=== PATIENT | female | born 1965 | race Caucasian/White ===

== ENCOUNTER 2025-03-30 07:22 | Outpatient (CLI) | payer OTHER ==
[2025-03-30 08:42] LABS: BASO % 0.7 % (0.1-1.2); EOS # 0.07 (0.04-0.54); EOS % 1.6 % (0.7-7.0); LYMPH # 1.48 (1.18-3.74); LYMPH % 32.8 % (19.3-53.1); MEAN PLATELET VOLUME 12.50 fl (9.4-12.4); MONO # 0.36 (0.24-0.82); MONO % 8.0 % (4.7-12.5); NEUT # 2.56 (1.56-6.13); NEUT % 56.7 % (34.0-71.1); RED CELL DISTRIBUTION WIDTH 13.2 % (11.6-14.4)
[2025-03-30 09:05] LABS: URINE APPEARANCE Clear; URINE BILIRRUBIN Negative (NEGATIVE); URINE BLOOD Negative; URINE COLOR Yellow; URINE GLUCOSE Negative (NEGATIVE); URINE LEUKOCYTE Negative; URINE NITRATE Negative; URINE PROTEIN Negative (NEGATIVE); URINE UROBILINOGEN 1.0 E.U./dl
[2025-03-30 09:08] LABS: URINE BACTERIA 22.7 uL (0.0-1933); URINE EPITHELIAL CELLS 7.3 uL (0.0-38.8); URINE RBC 11.1 uL (0.0-20.8); URINE WBC 4.4 uL (0.0-23.2)
[2025-03-30 09:24] LABS: URINE CAST 0.29 uL (0.0-1.40); URINE KETONE 40 (NEGATIVE)
[2025-03-30 09:33] LABS: ob NEGATIVE (NEGATIVE)
[2025-03-30 10:50] LABS: ALT/SGPT 27 U/L (12-78); AST/SGOT 20 U/L (15-37); BILIRUBIN TOTAL 0.55 mg/dL (0.3-1.2); BUN CREA RATIO 24 (7.0-25.0); CREATININE SERUM 0.59 mg/dL (0.55-1.02); FE 93.0 ug/dl (50-170); FREE TRIODOTIRONINE 2.57 pg/ml (2.18-3.98); GFR 104.32; GLOBULINA 3.8 G/DL (2.4-3.5); GLUCOSE FASTING 98 mg/dL (65-100); HDL 103 mg/dl (40-60); OSMOLALITY SERUM 284 MOSM/KG (275-295); T4 FREE 0.98 NG/ML (0.76-1.46); T4 TOTAL 9.69 UG/DL (4.8-13.9); TSH 1.290 uIU/mL (0.358-3.74); VLDL 12 (0-39)
[2025-03-30 11:03] LABS: CHOL HDL RATIO 2.5 (0-5.0); LDL 138 mg/dl (0-130)
[2025-03-30 12:36] LABS: FOLIC ACID > 20.00 ng/ml (4.78-20); T3 TOTAL 1.230 ng/ml (0.846-2.02); VITAMIN D3 25 HYDROXY 50.14 ng/ml (30-120)
[2025-03-31 09:08] LABS: ESTRADIOL SERUM < 5.0 pg/mL (.); HOMOCYSTEINE 7.8 umol/L (0.0-14.5); INSULIN LEVELS 7.5 uIU/mL (2.6-24.9); LEUTEINIZING HORMONE 27.2 mIU/mL (.); PROGESTERONA 0.1 ng/mL (.)
== END 2025-03-30 07:36 | disposition home or self-care (01) ==
LOC: LAB 07:22
DX: D64.3 Other sideroblastic anemias (principal); I10 Essential (primary) hypertension; E78.2 Mixed hyperlipidemia; N39.0 Urinary tract infection, site not specified; E11.21 Type 2 diabetes mellitus with diabetic nephropathy; I12.0 Hypertensive chronic kidney disease with stage 5 chronic kidney disease or end stage renal disease; M05.50 Rheumatoid polyneuropathy with rheumatoid arthritis of unspecified site; D44.0 Neoplasm of uncertain behavior of thyroid gland; E55.9 Vitamin D deficiency, unspecified; D52.9 Folate deficiency anemia, unspecified; E61.1 Iron deficiency; D51.0 Vitamin B12 deficiency anemia due to intrinsic factor deficiency; E03.8 Other specified hypothyroidism; E56.8 Deficiency of other vitamins; E55.0 Rickets, active; N95.1 Menopausal and female climacteric states; N95.8 Other specified menopausal and perimenopausal disorders; E16.1 Other hypoglycemia; R79.82 Elevated C-reactive protein (CRP); Z13.1 Encounter for screening for diabetes mellitus; R30.0 Dysuria; Z12.11 Encounter for screening for malignant neoplasm of colon; R74.8 Abnormal levels of other serum enzymes